=== PATIENT | female | born 1995 | race Caucasian/White ===

== ENCOUNTER 2024-10-31 02:06 | Emergency (ER) | payer BC ==
[2024-10-31] MEDS ORDERED: Sodium Chloride 0.9% 2.5 ML Syringe FLUSH PRN (02:39)
[2024-10-31] MEDS ORDERED: Sodium Chloride 0.9% 10 ML Syringe FLUSH PRN (02:39)
[2024-10-31] MEDS ORDERED: Naloxone 0.4 MG/ML SDV IVPUSH PRN (02:57)
[2024-10-31] MEDS: Morphine 4 MG/ML Syringe IVPUSH ONE (03:09)
[2024-10-31] MEDS: Acetaminophen/HYDROcodone 325-5 MG Tab PO ONE (03:18)
[2024-10-31] MEDS: Morphine 2 MG/ML SYRINGE IVPUSH ONE (03:49)
[2024-10-31] MEDS: Sodium Chloride 0.9% 1,000 ML IV ONE (03:49)
[2024-10-31 03:55] LABS: MAGNESIUM 2.1 mg/dL (1.8-2.4); POTASSIUM,K 3.6 mmol/L (3.5-5.1)
[2024-10-31] MEDS: Propofol 200 MG/20 ML SDV IVPUSH ONE (04:29)
[2024-10-31] MEDS: HYDROmorphone 0.5 MG/0.5 ML Syringe IVPUSH ONE (05:02)
[2024-10-31 05:28] VITALS: BP 98/59; PULSE 83
== END 2024-10-31 06:01 | disposition home or self-care (01) ==
LOC: MW.ED 02:06
DX: S52.572A Other intraarticular fracture of lower end of left radius, initial encounter for closed fracture (principal); S52.612A Displaced fracture of left ulna styloid process, initial encounter for closed fracture; F17.210 Nicotine dependence, cigarettes, uncomplicated; Z79.899 Other long term (current) drug therapy; Z75.8 Other problems related to medical facilities and other health care; W01.0XXA Fall on same level from slipping, tripping and stumbling without subsequent striking against object, initial encounter
CPT/HCPCS: 25605; 36415; 73100; 73110; 83735; 84132; 84703; 93005; 96374; 96375; 96376; 99284; J1171; J2270; J2704; J7030

== ENCOUNTER 2025-01-24 11:26 | Emergency (ER) | payer BC ==
[2025-01-24 11:54] LABS: BASOPHILS PERCENT AUTO 1.2 % (0.0-1.0); EOSINOPHILS ABSOLUTE AUTO 0.13 K/uL (0.00-0.45); EOSINOPHILS PERCENT AUTO 1.6 % (0.0-6.0); HEMATOCRIT 38.2 % (37.0-47.0); HEMOGLOBIN 13.5 g/dL (12.0-16.0); IMMATURE GRAN ABSOLUTE AUTO 0.01 K/uL (0.00-0.05); IMMATURE GRAN PERCENT AUTO 0.1 % (0.0-0.4); LYMPHOCYTES ABSOLUTE AUTO 2.45 K/uL (1.00-4.80); LYMPHOCYTES PERCENT AUTO 29.3 % (24.0-44.0); MEAN CORPUSCULAR HEMOGLOBIN 32.2 pg (28.0-32.0); MEAN CORPUSCULAR HGB CONC 35.3 g/dL (32.0-36.0); MEAN CORPUSCULAR VOLUME 91.2 fL (83.0-99.0); MEAN PLATELET VOLUME 9.2 fL (9.4-12.3); NEUTROPHILS ABSOLUTE AUTO 5.17 K/uL (1.80-7.70); NEUTROPHILS PERCENT AUTO 61.8 % (41.0-71.0); PLATELET COUNT,PLT 373 K/uL (150-400); RED BLOOD CELL COUNT 4.19 M/uL (4.10-5.30); WHITE BLOOD CELL COUNT,WBC 8.36 K/uL (3.9-11.3)
[2025-01-24 11:57] LABS: APPEARANCE,URINE SLT CLOUDY; BILIRUBIN,URINE NEGATIVE (NEGATIVE); COLOR,URINE YELLOW; GLUCOSE,URINE NEGATIVE (NEGATIVE); KETONES,URINE NEGATIVE (NEGATIVE); LEUKOCYTE ESTERASE,URINE NEGATIVE (NEGATIVE); NITRITE,URINE NEGATIVE (NEGATIVE); OCCULT BLOOD,URINE LARGE (NEGATIVE); PROTEIN,URINE NEGATIVE (NEGATIVE); UROBILINOGEN,URINE 0.2 EU/dL (<2.0)
[2025-01-24 12:04] LABS: BACTERIA,URINE FEW (NEGATIVE); EPITHELIAL CELLS,URINE MANY (NONE-FEW); WBC,URINE 0-3 (0-5/HPF)
[2025-01-24 12:22] LABS: ALBUMIN 3.9 g/dL (3.4-5.0); BILIRUBIN TOTAL 0.5 mg/dL (0.2-1.0); CALCIUM 8.9 mg/dL (8.5-10.1); CARBON DIOXIDE,CO2 22.5 mmol/L (21.0-32.0); CREATININE 0.8 mg/dL (0.6-1.0); EST CRCL DRUG DOSING (CG) 96.26 mL/min; POTASSIUM,K 3.8 mmol/L (3.5-5.1); PROTEIN TOTAL,TP 7.8 g/dL (6.4-8.2)
[2025-01-24] MEDS: Ondansetron 4 MG Tab.DIS PO ONE (13:14)
[2025-01-24] MEDS: Acetaminophen 500 MG Tab PO ONE (13:14)
[2025-01-24 13:40] VITALS: BP 108/69; PULSE 72
== END 2025-01-24 13:39 | disposition home or self-care (01) ==
LOC: MW.ED 11:26
DX: N93.8 Other specified abnormal uterine and vaginal bleeding (principal); Z79.899 Other long term (current) drug therapy; Z75.8 Other problems related to medical facilities and other health care
CPT/HCPCS: 36415; 76817; 80053; 81001; 84702; 85025; 86900; 86901; 99284; A9270